=== PATIENT | male | born 1965 | race Caucasian/White ===

== ENCOUNTER 2016-09-25 09:51 | Emergency (ER) | payer OTHER ==
[~2016-09-25] VITALS: Ht 182.9 cm; Wt 91.5 kg
[~2016-09-25 09:51] MED LIST: AMLO5TAB2 PO; LISI-515 PO
[2016-09-25 09:53] VITALS: BP 155/92; PULSE 70; RESP 20; TEMP 97.7; O2SAT 97
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
[2016-09-25] MEDS ORDERED: CYCL5TAB PO (10:55)
[2016-09-27 13:10] LABS: HEPATITIS B SURFACE ANTIBODY 0 mIU/mL
== END 2016-09-25 11:48 | disposition home or self-care (01) ==
LOC: NEPD 09:51
DX: M25.522 Pain in left elbow (principal); M25.561 Pain in right knee; M25.562 Pain in left knee; Y04.8XXA Assault by other bodily force, initial encounter; Y92.149 Unspecified place in prison as the place of occurrence of the external cause; Y99.0 Civilian activity done for income or pay; Z77.21 Contact with and (suspected) exposure to potentially hazardous body fluids
CPT/HCPCS: 86317; 86703; 86803; 99283